=== PATIENT | male | born 1945 | race Caucasian/White ===

== ENCOUNTER 2018-04-21 23:12 | Emergency (ER) | payer MEDICARE ==
[~2018-04-21] VITALS: Ht 175.3 cm; Wt 66.2 kg
[~2018-04-21 23:12] MED LIST: ACET325UDC PO; AMLO10 PO; AMLO5; AMLO5 PO; ARIP10 PO; ATOR40TA; BENAML10/5 PO; BUPR75 PO; CHLGLU.12S MT; CLON.5 PO; CLON1 PO; COLC.6 PO; CYCL10 PO; DEXT40GEL PO; DIPH12.5EL PO; DOC100SO PO; DOC250 PO; DOCU100 PO; ERYSTE250 PO; ERYT250 PO; FURO20 PO; GABA100 PO; GABA250SO PO; GAVILAX17 GM PO; GLUCOSE; HYDACE10B PO; HYDACE5 PO; IBUP800 PO; INSUASPI SC; INSULANI SC; LANS30EC; LANS30EC PO; LAVAP17G PO; LIDO5TP TOP; LISHYD1012 PO; LISI10 PO; LISI5 PO; LISINOPRIL-? DOSE; LORA1 PO; METF500 PO; METH5 PO; METO10 PO; METO25ER PO; MIRT15 PO; OMEP20ER PO; OXYC1L PO; PANT40 PO; POTA20LUD PO; POTCHL10ER PO; QUET25 PO; RANI150EL PO; RXHYDACE PO; SENN8.8S8 PO; SERT50 PO; URSO300 PO; ZOLP10 PO
[2018-04-21 23:55] LABS: BASOPHILS ABSOLUTE AUTO 0.03 K/mm3 (0.00-0.23); BASOPHILS PERCENT AUTO 0 % (0-2); EOSINOPHILS ABSOLUTE AUTO 0.12 K/mm3 (0.00-0.68); EOSINOPHILS PERCENT AUTO 2 % (0-6); Hematocrit 32.1 % (37.0-53.0); Hemoglobin 10.8 g/dL (13.5-17.5); IMMATURE GRAN ABSOLUTE AUTO 0.03 K/mm3 (0.00-0.10); IMMATURE GRAN PERCENT AUTO 0 % (0-1); LYMPHOCYTES PERCENT AUTO 22 % (21-46); MONOCYTES ABSOLUTE AUTO 0.64 K/mm3 (0.16-1.47); MONOCYTES PERCENT AUTO 9 % (4-13); Mean Corpuscular HGB 32.8 pg (26.0-34.0); Mean Corpuscular HGB Conc 33.6 g/dL (31.5-36.5); Mean Corpuscular Volume 98 fL (80-100); Mean Platelet Volume 9.9 fL (9.1-12.4); NEUTROPHILS ABSOLUTE AUTO 4.75 K/mm3 (1.96-9.15); NEUTROPHILS PERCENT AUTO 66 % (41-73); Platelet Count 251 K/mm3 (150-400); RDW Coefficient Variation 13.3 % (11.7-14.2); RDW Standard Deviation 48.1 fL (35.1-46.3); Red Blood Cell Count 3.29 M/mm3 (4.30-5.90); White Blood Cell Count 7.17 K/mm3 (4.00-11.30)
[2018-04-22 00:11] LABS: Alanine Aminotransfer (ALT/SGP 23 U/L (12-78); Albumin, Blood 3.3 g/dL (3.4-5.0); Albumin/Globulin Ratio 1.3 (0.8-1.8); Alk Phos 127 U/L (50-136); Anion Gap 7 mmol/L (6-16); Aspartate Aminotrans (AST/SGOT 23 U/L (12-37); Bilirubin, Total 0.2 mg/dL (0.1-1.0); Blood Urea Nitrogen 13 mg/dL (8-24); Bun/Creatinine Ratio 17.6 (12.0-20.0); CO2, Blood 26 mmol/L (21-32); Calcium, Blood 7.4 mg/dL (8.5-10.1); Chloride, Blood 107 mmol/L (98-108); Creatinine, Blood 0.74 mg/dL (0.60-1.20); Globulin, Blood 2.5 g/dL (2.2-4.0); Glomerular Filtration Rate >60 (60-); Glucose, Blood 79 mg/dL (70-99); Potassium, Blood 3.7 mmol/L (3.5-5.5); Sodium, Blood 140 mmol/L (136-145); Total Protein, Blood 5.8 g/dL (6.4-8.2); Troponin I <0.015 ng/mL (0.000-0.040)
== END 2018-04-22 02:12 | disposition home or self-care (01) ==
LOC: ER 23:12
PROVIDERS: Emergency Medicine
DX: R55 Syncope and collapse (principal); S00.01XA Abrasion of scalp, initial encounter; R07.89 Other chest pain; E11.9 Type 2 diabetes mellitus without complications; Z88.8 Allergy status to other drugs, medicaments and biological substances; Z88.1 Allergy status to other antibiotic agents; Z88.0 Allergy status to penicillin; Z79.899 Other long term (current) drug therapy; Z79.84 Long term (current) use of oral hypoglycemic drugs; Z87.891 Personal history of nicotine dependence; W18.30XA Fall on same level, unspecified, initial encounter
CPT/HCPCS: 36415; 70450; 71046; 72125; 73070; 80053; 84484; 85025; 93005; 93010; 96361; 96374; 96375; 99285-25; J2405; J3010; J7030

== ENCOUNTER 2019-01-30 00:52 | Emergency (ER) | payer OTHER, MEDICARE ==
[~2019-01-30] VITALS: Ht 175.3 cm; Wt 67.1 kg
[2019-01-30 01:18] LABS: BASOPHILS ABSOLUTE AUTO 0.04 K/mm3 (0.00-0.23); BASOPHILS PERCENT AUTO 1 % (0-2); EOSINOPHILS ABSOLUTE AUTO 0.14 K/mm3 (0.00-0.68); EOSINOPHILS PERCENT AUTO 2 % (0-6); Hematocrit 33.5 % (37.0-53.0); Hemoglobin 11.8 g/dL (13.5-17.5); IMMATURE GRAN ABSOLUTE AUTO 0.02 K/mm3 (0.00-0.10); IMMATURE GRAN PERCENT AUTO 0 % (0-1); LYMPHOCYTES ABSOLUTE AUTO 1.96 K/mm3 (0.84-5.20); LYMPHOCYTES PERCENT AUTO 29 % (21-46); MONOCYTES ABSOLUTE AUTO 0.77 K/mm3 (0.16-1.47); MONOCYTES PERCENT AUTO 12 % (4-13); Mean Corpuscular HGB 34.1 pg (26.0-34.0); Mean Corpuscular HGB Conc 35.2 g/dL (31.5-36.5); Mean Corpuscular Volume 97 fL (80-100); Mean Platelet Volume 9.4 fL (9.1-12.4); NEUTROPHILS ABSOLUTE AUTO 3.79 K/mm3 (1.96-9.15); NEUTROPHILS PERCENT AUTO 56 % (41-73); Platelet Count 378 K/mm3 (150-400); RDW Coefficient Variation 13.2 % (11.7-14.2); RDW Standard Deviation 47.3 fL (35.1-46.3); Red Blood Cell Count 3.46 M/mm3 (4.30-5.90); White Blood Cell Count 6.72 K/mm3 (4.00-11.30)
[2019-01-30 01:34] LABS: Prothrombin Time Results 10.6 Sec (9.7-11.5)
[2019-01-30 01:35] LABS: Alanine Aminotransfer (ALT/SGP 22 U/L (12-78); Albumin, Blood 3.9 g/dL (3.4-5.0); Albumin/Globulin Ratio 1.6 (0.8-1.8); Alk Phos 171 U/L (50-136); Anion Gap 7 mmol/L (6-16); Aspartate Aminotrans (AST/SGOT 24 U/L (12-37); Bilirubin, Total 0.2 mg/dL (0.1-1.0); Blood Urea Nitrogen 21 mg/dL (8-24); Bun/Creatinine Ratio 23.5 (12.0-20.0); CO2, Blood 28 mmol/L (21-32); Calcium, Blood 8.4 mg/dL (8.5-10.1); Chloride, Blood 94 mmol/L (98-108); Creatinine, Blood 0.89 mg/dL (0.60-1.20); Globulin, Blood 2.5 g/dL (2.2-4.0); Glomerular Filtration Rate >60 (60-); Glucose, Blood 111 mg/dL (70-99); Potassium, Blood 4.1 mmol/L (3.5-5.5); Sodium, Blood 129 mmol/L (136-145); Total Protein, Blood 6.4 g/dL (6.4-8.2)
== END 2019-01-30 03:40 | disposition home or self-care (01) ==
LOC: ER 00:52
PROVIDERS: Emergency Medicine
DX: S09.90XA Unspecified injury of head, initial encounter (principal); S80.01XA Contusion of right knee, initial encounter; S90.01XA Contusion of right ankle, initial encounter; E11.9 Type 2 diabetes mellitus without complications; I10 Essential (primary) hypertension; Z88.8 Allergy status to other drugs, medicaments and biological substances; Z88.0 Allergy status to penicillin; Z79.899 Other long term (current) drug therapy; Z79.84 Long term (current) use of oral hypoglycemic drugs; Z87.891 Personal history of nicotine dependence; V89.2XXA Person injured in unspecified motor-vehicle accident, traffic, initial encounter
CPT/HCPCS: 36415; 70450; 71046; 73562-LT; 73610; 80053; 85025; 85610; 99284-25

== ENCOUNTER → 2020-04-26 | Outpatient (CLI) | payer OTHER, MEDICARE ==
[~2020-04-26] MED LIST changes: +Anti-Diarrheal2 MG PO; +CELE100 PO; +CHLO25B PO; +FERSU300 PO; +FISH OIL 1,0001 EAC1 PO; +Hydroxyzine HCl50 MG PO; +MELA3 PO; +MULTIPLE VITAM1 EACH PO; +Norco 10-325 T1 EACH PO; +OMEPPI 20 MG-11 EACH PO; +PERIDEX15 ML; +Robaxin750 MG PO; +Ropinirole HCl1 MG PO; +SPIR25 PO; +TAMS.4ER PO; +Vitamin D400 UNI1 PO
[2020-04-26 10:18] LABS: U Amphetamine Screen Not Detected
[2020-04-26 10:19] LABS: U Barbituate Screen Not Detected; U Benzodiazapine Screen Not Detected; U Buprenorphine Screen Not Detected; U Cannabinoids Screen Not Detected; U Cocaine Screen Not Detected; U Methadone Screen Not Detected; U Methamphetamine Screen Not Detected; U Opiates Screen Not Detected; U Oxycodone Screen DETECTED; U Phencyclidine Screen Not Detected; U Propoxyphene Screen Not Detected
[2020-05-03 09:09] LABS: TRICYCLIC ANTIDEP Negative ng/mL (Cutoff=100)
== END | disposition home or self-care (01) ==
LOC: OLS 09:19 → LAB SHORT 09:19
PROVIDERS: Physician Assistant Medical
DX: Z51.81 Encounter for therapeutic drug level monitoring (principal); Z79.891 Long term (current) use of opiate analgesic
CPT/HCPCS: G0480; G0481

== ENCOUNTER 2020-06-18 01:27 | Emergency (ER) | payer OTHER, MEDICARE ==
[~2020-06-18] VITALS: Ht 170.2 cm; Wt 67.1 kg
[2020-06-18 01:56] LABS: BASOPHILS ABSOLUTE AUTO 0.03 K/mm3 (0.00-0.23); BASOPHILS PERCENT AUTO 0 % (0-2); EOSINOPHILS ABSOLUTE AUTO 0.15 K/mm3 (0.00-0.68); EOSINOPHILS PERCENT AUTO 2 % (0-6); Hematocrit 28.4 % (37.0-53.0); Hemoglobin 9.9 g/dL (13.5-17.5); IMMATURE GRAN ABSOLUTE AUTO 0.04 K/mm3 (0.00-0.10); IMMATURE GRAN PERCENT AUTO 1 % (0-1); LYMPHOCYTES ABSOLUTE AUTO 1.36 K/mm3 (0.84-5.20); LYMPHOCYTES PERCENT AUTO 19 % (21-46); MONOCYTES ABSOLUTE AUTO 0.71 K/mm3 (0.16-1.47); MONOCYTES PERCENT AUTO 10 % (4-13); Mean Corpuscular HGB 31.8 pg (26.0-34.0); Mean Corpuscular HGB Conc 34.9 g/dL (31.5-36.5); Mean Corpuscular Volume 91 fL (80-100); Mean Platelet Volume 9.1 fL (9.1-12.4); NEUTROPHILS ABSOLUTE AUTO 4.71 K/mm3 (1.96-9.15); NEUTROPHILS PERCENT AUTO 67 % (41-73); Platelet Count 273 K/mm3 (150-400); RDW Coefficient Variation 12.5 % (11.7-14.2); RDW Standard Deviation 41.6 fL (35.1-46.3); Red Blood Cell Count 3.11 M/mm3 (4.30-5.90)
[2020-06-18 02:15] LABS: Alanine Aminotransfer (ALT/SGP 22 U/L (12-78); Albumin, Blood 3.6 g/dL (3.4-5.0); Albumin/Globulin Ratio 1.6 (0.8-1.8); Alk Phos 112 U/L (50-136); Anion Gap 7 mmol/L (6-16); Aspartate Aminotrans (AST/SGOT 23 U/L (12-37); Bilirubin, Total 0.2 mg/dL (0.1-1.0); Blood Urea Nitrogen 19 mg/dL (8-24); Bun/Creatinine Ratio 22.8 (12.0-20.0); CO2, Blood 28 mmol/L (21-32); Calcium, Blood 8.4 mg/dL (8.5-10.1); Chloride, Blood 93 mmol/L (98-108); Creatinine, Blood 0.83 mg/dL (0.60-1.20); Globulin, Blood 2.3 g/dL (2.2-4.0); Glomerular Filtration Rate >60 (60-); Glucose, Blood 106 mg/dL (70-99); Potassium, Blood 3.4 mmol/L (3.5-5.5); Sodium, Blood 128 mmol/L (136-145); Total Protein, Blood 5.9 g/dL (6.4-8.2); Troponin I <0.015 ng/mL (0.000-0.040)
[2020-06-18 02:47] LABS: Source, Urine Clean Catch
[2020-06-18 02:50] LABS: Bilirubin, Urine Neg (Neg); Blood, Urine Neg (Neg); Glucose Qualitative, Urine 1+ (Neg); Ketones, Urine Neg (Neg); Leukocyte Esterase, Urine Neg (Neg); Nitrite, Urine Neg (Neg); Protein, Urine Neg (Neg); Urobilinogen, Urine NORM (Normal)
[2020-06-18 03:00] LABS: Appearance, Urine Clear (Clear); Color, Urine Yellow (P-Yellow)
== END 2020-06-18 04:37 | disposition home or self-care (01) ==
LOC: ER 01:27
PROVIDERS: Emergency Medicine
DX: E87.1 Hypo-osmolality and hyponatremia (principal); E11.9 Type 2 diabetes mellitus without complications; Z79.899 Other long term (current) drug therapy; Z88.8 Allergy status to other drugs, medicaments and biological substances; Z88.0 Allergy status to penicillin; Z87.891 Personal history of nicotine dependence
CPT/HCPCS: 80053; 81003; 84484; 85025; 93005; 93010; 96360; 99285-25; J7030

== ENCOUNTER 2020-12-12 00:53 | Emergency (ER) | payer OTHER, MEDICARE ==
[~2020-12-12] VITALS: Ht 182.9 cm; Wt 68.0 kg
[2020-12-12 02:09] LABS: BASOPHILS ABSOLUTE AUTO 0.05 K/mm3 (0.00-0.23); BASOPHILS PERCENT AUTO 1 % (0-2); EOSINOPHILS ABSOLUTE AUTO 0.18 K/mm3 (0.00-0.68); EOSINOPHILS PERCENT AUTO 4 % (0-6); Hematocrit 30.3 % (37.0-53.0); Hemoglobin 10.4 g/dL (13.5-17.5); IMMATURE GRAN ABSOLUTE AUTO 0.01 K/mm3 (0.00-0.10); IMMATURE GRAN PERCENT AUTO 0 % (0-1); LYMPHOCYTES ABSOLUTE AUTO 1.44 K/mm3 (0.84-5.20); LYMPHOCYTES PERCENT AUTO 28 % (21-46); MONOCYTES PERCENT AUTO 10 % (4-13); Mean Corpuscular HGB 33.3 pg (26.0-34.0); Mean Corpuscular HGB Conc 34.3 g/dL (31.5-36.5); Mean Corpuscular Volume 97 fL (80-100); Mean Platelet Volume 9.2 fL (9.1-12.4); NEUTROPHILS ABSOLUTE AUTO 2.94 K/mm3 (1.96-9.15); NEUTROPHILS PERCENT AUTO 57 % (41-73); Platelet Count 374 K/mm3 (150-400); RDW Coefficient Variation 12.8 % (11.7-14.2); RDW Standard Deviation 45.9 fL (35.1-46.3); Red Blood Cell Count 3.12 M/mm3 (4.30-5.90); White Blood Cell Count 5.12 K/mm3 (4.00-11.30)
[2020-12-12 02:21] LABS: Ethanol (Alcohol), Blood, Med <3 mg/dL
[2020-12-12 02:22] LABS: Alanine Aminotransfer (ALT/SGP 19 U/L (12-78); Albumin, Blood 3.6 g/dL (3.4-5.0); Albumin/Globulin Ratio 1.6 (0.8-1.8); Alk Phos 129 U/L (50-136); Anion Gap 5 mmol/L (6-16); Aspartate Aminotrans (AST/SGOT 18 U/L (12-37); Bilirubin, Total 0.2 mg/dL (0.1-1.0); Blood Urea Nitrogen 14 mg/dL (8-24); Bun/Creatinine Ratio 14.1 (12.0-20.0); CO2, Blood 29 mmol/L (21-32); Chloride, Blood 99 mmol/L (98-108); Creatinine, Blood 0.99 mg/dL (0.60-1.20); Globulin, Blood 2.3 g/dL (2.2-4.0); Glomerular Filtration Rate >60 (60-); Glucose, Blood 121 mg/dL (70-99); Potassium, Blood 3.1 mmol/L (3.5-5.5); Sodium, Blood 133 mmol/L (136-145); Total Protein, Blood 5.9 g/dL (6.4-8.2)
[2020-12-12 03:57] LABS: Source, Urine Clean Catch
[2020-12-12 04:00] LABS: Bilirubin, Urine Neg (Neg); Blood, Urine Neg (Neg); Glucose Qualitative, Urine Neg (Neg); Ketones, Urine Neg (Neg); Leukocyte Esterase, Urine Neg (Neg); Nitrite, Urine Neg (Neg); Protein, Urine Neg (Neg); Specific Gravity, Urine 1.005 (1.003-1.022); Urobilinogen, Urine NORM (Normal)
[2020-12-12 04:06] LABS: Appearance, Urine Clear (Clear); Color, Urine Yellow (P-Yellow)
[2020-12-12 04:11] LABS: U Amphetamine Screen Not Detected; U Barbituate Screen Not Detected; U Methamphetamine Screen Not Detected
[2020-12-12 04:12] LABS: U Benzodiazapine Screen Not Detected; U Buprenorphine Screen Not Detected; U Cannabinoids Screen Not Detected; U Cocaine Screen Not Detected; U Methadone Screen Not Detected; U Opiates Screen Not Detected; U Oxycodone Screen Not Detected; U Phencyclidine Screen Not Detected; U Propoxyphene Screen Not Detected
[2020-12-12 04:16] LABS: CPK Creatine Kinase 97 U/L (39-308)
== END 2020-12-12 07:41 | disposition home or self-care (01) ==
LOC: ER 00:53
PROVIDERS: Emergency Medicine
DX: M62.838 Other muscle spasm (principal); E11.9 Type 2 diabetes mellitus without complications; I10 Essential (primary) hypertension; Z88.0 Allergy status to penicillin; Z88.8 Allergy status to other drugs, medicaments and biological substances; Z79.899 Other long term (current) drug therapy; Z87.891 Personal history of nicotine dependence; W18.30XA Fall on same level, unspecified, initial encounter
CPT/HCPCS: 36415; 70450; 71045; 72125; 80053; 81003; 82550; 82947; 85025; 93005; 93010; 96374; 99285-25; A9270; G0480; J1885

== ENCOUNTER 2021-04-22 01:06 | Emergency (ER) | payer OTHER ==
[~2021-04-22] VITALS: Ht 170.2 cm; Wt 70.8 kg
[~2021-04-22 01:06] MED LIST changes: +BENZ100A PO; +CLOTRIMAZOLE AF1524 TOP; +EPLE25 PO; +HYDROCORTISON28.4 G4 TOP; +IMIQUIMOD1 EACH TOP; +NALOXONE H0.4 MG/1 M IM; +TERA5 PO
[2021-04-22 01:40] LABS: BASOPHILS ABSOLUTE AUTO 0.05 K/mm3 (0.00-0.23); BASOPHILS PERCENT AUTO 1 % (0-2); EOSINOPHILS ABSOLUTE AUTO 0.18 K/mm3 (0.00-0.68); EOSINOPHILS PERCENT AUTO 2 % (0-6); Hematocrit 32.5 % (37.0-53.0); Hemoglobin 11.4 g/dL (13.5-17.5); IMMATURE GRAN ABSOLUTE AUTO 0.05 K/mm3 (0.00-0.10); IMMATURE GRAN PERCENT AUTO 1 % (0-1); LYMPHOCYTES ABSOLUTE AUTO 1.36 K/mm3 (0.84-5.20); LYMPHOCYTES PERCENT AUTO 15 % (21-46); MONOCYTES ABSOLUTE AUTO 0.79 K/mm3 (0.16-1.47); MONOCYTES PERCENT AUTO 9 % (4-13); Mean Corpuscular HGB 33.1 pg (26.0-34.0); Mean Corpuscular HGB Conc 35.1 g/dL (31.5-36.5); Mean Corpuscular Volume 95 fL (80-100); Mean Platelet Volume 9.7 fL (9.1-12.4); NEUTROPHILS ABSOLUTE AUTO 6.47 K/mm3 (1.96-9.15); NEUTROPHILS PERCENT AUTO 73 % (41-73); Platelet Count 370 K/mm3 (150-400); RDW Coefficient Variation 13.4 % (11.7-14.2); RDW Standard Deviation 47.3 fL (35.1-46.3); Red Blood Cell Count 3.44 M/mm3 (4.30-5.90)
[2021-04-22 02:00] LABS: Alanine Aminotransfer (ALT/SGP 31 U/L (12-78); Albumin, Blood 3.6 g/dL (3.4-5.0); Albumin/Globulin Ratio 1.3 (0.8-1.8); Alk Phos 118 U/L (50-136); Anion Gap 6 mmol/L (6-16); Aspartate Aminotrans (AST/SGOT 40 U/L (12-37); Bilirubin, Total 0.3 mg/dL (0.1-1.0); Blood Urea Nitrogen 16 mg/dL (8-24); Bun/Creatinine Ratio 17.8 (12.0-20.0); CO2, Blood 25 mmol/L (21-32); Calcium, Blood 8.2 mg/dL (8.5-10.1); Chloride, Blood 100 mmol/L (98-108); Globulin, Blood 2.7 g/dL (2.2-4.0); Glomerular Filtration Rate >60 (60-); Glucose, Blood 108 mg/dL (70-99); Potassium, Blood 4.3 mmol/L (3.5-5.5); Sodium, Blood 131 mmol/L (136-145); Total Protein, Blood 6.3 g/dL (6.4-8.2)
[2021-04-22 02:01] LABS: Troponin I <0.015 ng/mL (0.000-0.040)
== END 2021-04-22 02:47 | disposition home or self-care (01) ==
LOC: ER 01:06
PROVIDERS: Emergency Medicine
DX: R55 Syncope and collapse (principal); E11.9 Type 2 diabetes mellitus without complications; Z88.8 Allergy status to other drugs, medicaments and biological substances; Z88.0 Allergy status to penicillin; Z79.899 Other long term (current) drug therapy
CPT/HCPCS: 71045; 80053; 83880; 84484; 85025; 93005; 93010; 99284-25

== ENCOUNTER 2021-04-22 07:48 | Day surgery (SDC) | payer OTHER, MEDICARE ==
[~2021-04-22] VITALS: Ht 175.3 cm; Wt 73.0 kg
== END 2021-04-22 14:00 | disposition home or self-care (01) ==
LOC: MHTC 07:48
PROC: 04FC3ZZ Fragmentation of Right Common Iliac Artery, Percutaneous Approach (ICD-10-PCS; principal; 2021-04-22)
PROC: 04FD3ZZ Fragmentation of Left Common Iliac Artery, Percutaneous Approach (ICD-10-PCS; principal; 2021-04-22)
PROC: 047D3DZ Dilation of Left Common Iliac Artery with Intraluminal Device, Percutaneous Approach (ICD-10-PCS; principal; 2021-04-22)
PROC: 047C3DZ Dilation of Right Common Iliac Artery with Intraluminal Device, Percutaneous Approach (ICD-10-PCS; principal; 2021-04-22)
DX: I72.3 Aneurysm of iliac artery (principal); K21.9 Gastro-esophageal reflux disease without esophagitis; E78.5 Hyperlipidemia, unspecified; I10 Essential (primary) hypertension; R73.03 Prediabetes; Z87.891 Personal history of nicotine dependence; Z88.8 Allergy status to other drugs, medicaments and biological substances; Z88.0 Allergy status to penicillin
CPT/HCPCS: 75625; 75716; 76937; 99152; 99153; C1725; C1760; C1769; C1874; C1876; C1887; C1894; C9765; J1644; J2250; J3010; J7030; J7050; Q9967

== ENCOUNTER 2021-07-24 02:36 | Emergency (ER) | payer OTHER ==
[~2021-07-24] VITALS: Ht 177.8 cm; Wt 79.4 kg
[2021-07-24 03:06] LABS: BASOPHILS ABSOLUTE AUTO 0.05 K/mm3 (0.00-0.23); BASOPHILS PERCENT AUTO 1 % (0-2); EOSINOPHILS ABSOLUTE AUTO 0.13 K/mm3 (0.00-0.68); EOSINOPHILS PERCENT AUTO 2 % (0-6); Hematocrit 34.8 % (37.0-53.0); Hemoglobin 12.2 g/dL (13.5-17.5); IMMATURE GRAN ABSOLUTE AUTO 0.03 K/mm3 (0.00-0.10); IMMATURE GRAN PERCENT AUTO 0 % (0-1); LYMPHOCYTES ABSOLUTE AUTO 0.93 K/mm3 (0.84-5.20); LYMPHOCYTES PERCENT AUTO 11 % (21-46); MONOCYTES ABSOLUTE AUTO 0.65 K/mm3 (0.16-1.47); MONOCYTES PERCENT AUTO 8 % (4-13); Mean Corpuscular HGB 33.1 pg (26.0-34.0); Mean Corpuscular HGB Conc 35.1 g/dL (31.5-36.5); Mean Corpuscular Volume 94 fL (80-100); Mean Platelet Volume 9.1 fL (9.1-12.4); NEUTROPHILS ABSOLUTE AUTO 6.59 K/mm3 (1.96-9.15); NEUTROPHILS PERCENT AUTO 79 % (41-73); Platelet Count 347 K/mm3 (150-400); RDW Coefficient Variation 13.2 % (11.7-14.2); RDW Standard Deviation 46.2 fL (35.1-46.3); Red Blood Cell Count 3.69 M/mm3 (4.30-5.90); White Blood Cell Count 8.38 K/mm3 (4.00-11.30)
[2021-07-24 03:39] LABS: Alanine Aminotransfer (ALT/SGP 28 U/L (12-78); Albumin, Blood 3.8 g/dL (3.4-5.0); Albumin/Globulin Ratio 1.2 (0.8-1.8); Alk Phos 135 U/L (50-136); Anion Gap 7 mmol/L (6-16); Aspartate Aminotrans (AST/SGOT 21 U/L (12-37); Beta HCG, Quantitative, Serum <1 mIU/mL (0-1); Bilirubin, Total 0.2 mg/dL (0.1-1.0); Blood Urea Nitrogen 16 mg/dL (8-24); Bun/Creatinine Ratio 17.3 (12.0-20.0); CO2, Blood 25 mmol/L (21-32); Calcium, Blood 8.4 mg/dL (8.5-10.1); Chloride, Blood 103 mmol/L (98-108); Creatinine, Blood 0.93 mg/dL (0.60-1.20); Ethanol (Alcohol), Blood, Med <3 mg/dL; Globulin, Blood 3.1 g/dL (2.2-4.0); Glomerular Filtration Rate >60 (60-); Glucose, Blood 86 mg/dL (70-99); Potassium, Blood 3.9 mmol/L (3.5-5.5); Sodium, Blood 135 mmol/L (136-145); Total Protein, Blood 6.9 g/dL (6.4-8.2)
[2021-07-24 06:33] LABS: International Normalized Ratio 1.05
[2021-07-24 06:41] LABS: Troponin I <0.015 ng/mL (0.000-0.040)
== END 2021-07-24 08:30 | disposition home or self-care (01) ==
LOC: ER 02:36
PROVIDERS: Student in an Organized Health Care Education/Training Program
DX: R55 Syncope and collapse (principal); S16.1XXA Strain of muscle, fascia and tendon at neck level, initial encounter; S00.03XA Contusion of scalp, initial encounter; I10 Essential (primary) hypertension; E11.9 Type 2 diabetes mellitus without complications; Z87.891 Personal history of nicotine dependence; Z88.0 Allergy status to penicillin; Z88.8 Allergy status to other drugs, medicaments and biological substances; Z79.899 Other long term (current) drug therapy; W22.8XXA Striking against or struck by other objects, initial encounter
CPT/HCPCS: 36415; 70450; 71045; 72125; 80053; 82947; 83690; 83880; 84484; 84702; 85025; 85610; 93005; 93010; 96374; 99285-25; A9270; G0480; J1885; J7042

== ENCOUNTER 2022-03-01 04:05 | Emergency (ER) | payer OTHER ==
[~2022-03-01] VITALS: Ht 170.2 cm; Wt 71.2 kg
[2022-03-01 04:25] LABS: BASOPHILS ABSOLUTE AUTO 0.05 K/mm3 (0.00-0.23); BASOPHILS PERCENT AUTO 1 % (0-2); EOSINOPHILS ABSOLUTE AUTO 0.32 K/mm3 (0.00-0.68); EOSINOPHILS PERCENT AUTO 4 % (0-6); Hematocrit 32.3 % (37.0-53.0); IMMATURE GRAN ABSOLUTE AUTO 0.03 K/mm3 (0.00-0.10); IMMATURE GRAN PERCENT AUTO 0 % (0-1); LYMPHOCYTES ABSOLUTE AUTO 1.62 K/mm3 (0.84-5.20); LYMPHOCYTES PERCENT AUTO 20 % (21-46); MONOCYTES ABSOLUTE AUTO 0.58 K/mm3 (0.16-1.47); MONOCYTES PERCENT AUTO 7 % (4-13); Mean Corpuscular HGB Conc 34.1 g/dL (31.5-36.5); Mean Corpuscular Volume 94 fL (80-100); NEUTROPHILS ABSOLUTE AUTO 5.54 K/mm3 (1.96-9.15); NEUTROPHILS PERCENT AUTO 68 % (41-73); Platelet Count 255 K/mm3 (150-400); RDW Coefficient Variation 13.8 % (11.7-14.2); RDW Standard Deviation 47.8 fL (35.1-46.3); Red Blood Cell Count 3.44 M/mm3 (4.30-5.90); White Blood Cell Count 8.14 K/mm3 (4.00-11.30)
[2022-03-01 04:48] LABS: Albumin, Blood 3.6 g/dL (3.4-5.0); Albumin/Globulin Ratio 1.5 (0.8-1.8); Bilirubin, Total 0.2 mg/dL (0.1-1.0); Bun/Creatinine Ratio 12.5 (12.0-20.0); Calcium, Blood 7.9 mg/dL (8.5-10.1); Creatinine, Blood 0.8 mg/dL (0.60-1.20); Globulin, Blood 2.4 g/dL (2.2-4.0); Potassium, Blood 3.4 mmol/L (3.5-5.5)
== END 2022-03-01 08:15 | disposition home or self-care (01) ==
LOC: ER 04:05
PROVIDERS: Student in an Organized Health Care Education/Training Program
DX: S00.03XA Contusion of scalp, initial encounter (principal); M54.2 Cervicalgia; W18.30XA Fall on same level, unspecified, initial encounter; E11.9 Type 2 diabetes mellitus without complications; I10 Essential (primary) hypertension; Z88.0 Allergy status to penicillin; Z88.8 Allergy status to other drugs, medicaments and biological substances; Z79.899 Other long term (current) drug therapy; Z87.891 Personal history of nicotine dependence
CPT/HCPCS: 36415; 70450; 72125; 80053; 84484; 85025; 93005; 93010

== ENCOUNTER 2022-04-21 09:18 | Emergency (ER) | payer OTHER ==
[~2022-04-21] VITALS: Ht 170.2 cm; Wt 69.0 kg
[2022-04-21 09:34] LABS: BASOPHILS ABSOLUTE AUTO 0.04 K/mm3 (0.00-0.23); BASOPHILS PERCENT AUTO 1 % (0-2); EOSINOPHILS ABSOLUTE AUTO 0.25 K/mm3 (0.00-0.68); EOSINOPHILS PERCENT AUTO 3 % (0-6); Hematocrit 32.5 % (37.0-53.0); Hemoglobin 11.2 g/dL (13.5-17.5); IMMATURE GRAN ABSOLUTE AUTO 0.03 K/mm3 (0.00-0.10); IMMATURE GRAN PERCENT AUTO 0 % (0-1); LYMPHOCYTES ABSOLUTE AUTO 1.31 K/mm3 (0.84-5.20); LYMPHOCYTES PERCENT AUTO 16 % (21-46); MONOCYTES PERCENT AUTO 10 % (4-13); Mean Corpuscular HGB 31.9 pg (26.0-34.0); Mean Corpuscular HGB Conc 34.5 g/dL (31.5-36.5); Mean Corpuscular Volume 93 fL (80-100); Mean Platelet Volume 9.4 fL (9.1-12.4); NEUTROPHILS ABSOLUTE AUTO 5.98 K/mm3 (1.96-9.15); NEUTROPHILS PERCENT AUTO 71 % (41-73); Platelet Count 341 K/mm3 (150-400); RDW Coefficient Variation 13.9 % (11.7-14.2); RDW Standard Deviation 47.6 fL (35.1-46.3); Red Blood Cell Count 3.51 M/mm3 (4.30-5.90); White Blood Cell Count 8.41 K/mm3 (4.00-11.30)
[2022-04-21 09:52] LABS: Albumin, Blood 3.7 g/dL (3.4-5.0); Albumin/Globulin Ratio 1.2 (0.8-1.8); Bilirubin, Total 0.3 mg/dL (0.1-1.0); Bun/Creatinine Ratio 20.2 (12.0-20.0); Calcium, Blood 8.4 mg/dL (8.5-10.1); Creatinine, Blood 0.94 mg/dL (0.60-1.20); Globulin, Blood 3.1 g/dL (2.2-4.0); Potassium, Blood 3.9 mmol/L (3.5-5.5); Total Protein, Blood 6.8 g/dL (6.4-8.2)
[2022-04-21] MEDS ORDERED: HYDMOR4 (13:23)
== END 2022-04-21 13:15 | disposition home or self-care (01) ==
LOC: ER 09:18
PROVIDERS: Emergency Medicine
DX: R55 Syncope and collapse (principal); K94.23 Gastrostomy malfunction; I10 Essential (primary) hypertension; E11.9 Type 2 diabetes mellitus without complications; Y84.8 Other medical procedures as the cause of abnormal reaction of the patient, or of later complication, without mention of misadventure at the time of the procedure; Z88.0 Allergy status to penicillin; Z88.8 Allergy status to other drugs, medicaments and biological substances
CPT/HCPCS: 71045; 74018; 80053; 82947; 85025; 93005; 93010

== ENCOUNTER 2022-05-09 10:27 | Emergency (ER) | payer OTHER ==
[~2022-05-09] VITALS: Ht 170.2 cm; Wt 77.8 kg
[~2022-05-09 10:27] MED LIST changes: +HYDMOR4
== END 2022-05-09 12:43 | disposition home or self-care (01) ==
LOC: ER 10:27
DX: Z46.59 Encounter for fitting and adjustment of other gastrointestinal appliance and device (principal); I10 Essential (primary) hypertension; E11.9 Type 2 diabetes mellitus without complications; Z79.899 Other long term (current) drug therapy; Z88.8 Allergy status to other drugs, medicaments and biological substances; Z88.0 Allergy status to penicillin; Z85.01 Personal history of malignant neoplasm of esophagus
CPT/HCPCS: 74018

== ENCOUNTER 2022-08-02 08:45 | Emergency (ER) | payer OTHER ==
[~2022-08-02] VITALS: Ht 167.6 cm; Wt 69.4 kg
[2022-08-02 10:35] LABS: BASOPHILS ABSOLUTE AUTO 0.04 K/mm3 (0.00-0.23); BASOPHILS PERCENT AUTO 0 % (0-2); EOSINOPHILS ABSOLUTE AUTO 0.22 K/mm3 (0.00-0.68); EOSINOPHILS PERCENT AUTO 2 % (0-6); Hematocrit 36.1 % (37.0-53.0); Hemoglobin 12.7 g/dL (13.5-17.5); IMMATURE GRAN ABSOLUTE AUTO 0.07 K/mm3 (0.00-0.10); IMMATURE GRAN PERCENT AUTO 1 % (0-1); LYMPHOCYTES ABSOLUTE AUTO 1.65 K/mm3 (0.84-5.20); LYMPHOCYTES PERCENT AUTO 13 % (21-46); MONOCYTES ABSOLUTE AUTO 1.13 K/mm3 (0.16-1.47); MONOCYTES PERCENT AUTO 9 % (4-13); Mean Corpuscular HGB 32.4 pg (26.0-34.0); Mean Corpuscular HGB Conc 35.2 g/dL (31.5-36.5); Mean Corpuscular Volume 92 fL (80-100); Mean Platelet Volume 8.7 fL (9.1-12.4); NEUTROPHILS ABSOLUTE AUTO 9.59 K/mm3 (1.96-9.15); NEUTROPHILS PERCENT AUTO 76 % (41-73); Platelet Count 411 K/mm3 (150-400); RDW Coefficient Variation 13.4 % (11.7-14.2); RDW Standard Deviation 45.7 fL (35.1-46.3); Red Blood Cell Count 3.92 M/mm3 (4.30-5.90)
[2022-08-02 10:52] LABS: Albumin/Globulin Ratio 1.2 (0.8-1.8); Bilirubin, Total 0.4 mg/dL (0.1-1.0); Bun/Creatinine Ratio 17.5 (12.0-20.0); Calcium, Blood 9.2 mg/dL (8.5-10.1); Creatinine, Blood 0.8 mg/dL (0.60-1.20); Globulin, Blood 3.4 g/dL (2.2-4.0); Potassium, Blood 3.9 mmol/L (3.5-5.5); Total Protein, Blood 7.4 g/dL (6.4-8.2)
[2022-08-02] MEDS ORDERED: Vibramycin100 MG PO ×2 (13:37→13:55)
== END 2022-08-02 14:01 | disposition home or self-care (01) ==
LOC: ER 08:45
PROVIDERS: Physician Assistant
DX: K94.12 Enterostomy infection (principal); L03.311 Cellulitis of abdominal wall; E11.9 Type 2 diabetes mellitus without complications; I10 Essential (primary) hypertension; Y84.8 Other medical procedures as the cause of abnormal reaction of the patient, or of later complication, without mention of misadventure at the time of the procedure; Z88.0 Allergy status to penicillin; Z88.8 Allergy status to other drugs, medicaments and biological substances; Z87.891 Personal history of nicotine dependence
CPT/HCPCS: 36415; 80053; 85025; A9270

== ENCOUNTER 2022-10-07 15:37 | Emergency (ER) | payer OTHER ==
[~2022-10-07] VITALS: Ht 167.6 cm; Wt 72.6 kg
[~2022-10-07 15:37] MED LIST changes: +Vibramycin100 MG PO
== END 2022-10-07 17:11 | disposition home or self-care (01) ==
LOC: ER 15:37
DX: K94.13 Enterostomy malfunction (principal); Z88.8 Allergy status to other drugs, medicaments and biological substances; Z88.0 Allergy status to penicillin; Z79.899 Other long term (current) drug therapy; E11.9 Type 2 diabetes mellitus without complications; I10 Essential (primary) hypertension; Z87.891 Personal history of nicotine dependence
CPT/HCPCS: 49465; 99283-25; Q9963

== ENCOUNTER → 2023-03-26 | Outpatient (CLI) | payer OTHER | END | disposition home or self-care (01) | LOC: LAB SHORT 10:50 → LAB 10:50 | DX: M70.21 Olecranon bursitis, right elbow (principal) | CPT/HCPCS: 87070; 87075; 87205 ==

== ENCOUNTER 2023-07-10 16:36 | Emergency (ER) | payer OTHER ==
[~2023-07-10] VITALS: Ht 167.6 cm; Wt 74.4 kg
[2023-07-10] MEDS ORDERED: METF500 PO (16:52)
[2023-07-10] MEDS ORDERED: LOSA50 PO (16:52)
[2023-07-10] MEDS ORDERED: Robaxin750 MG (16:53)
[2023-07-10] MEDS ORDERED: ROPI1 PO (16:53)
[2023-07-10] MEDS ORDERED: TRAZ50 PO (16:54)
[2023-07-10] MEDS ORDERED: Crestor40 MG PO (16:54)
[2023-07-10] MEDS ORDERED: SERT100 PO (16:54)
[2023-07-10 17:31] LABS: BASOPHILS ABSOLUTE AUTO 0.05 K/mm3 (0.00-0.23); BASOPHILS PERCENT AUTO 1 % (0-2); EOSINOPHILS ABSOLUTE AUTO 0.39 K/mm3 (0.00-0.68); EOSINOPHILS PERCENT AUTO 5 % (0-6); Hematocrit 30.1 % (37.0-53.0); Hemoglobin 10.1 g/dL (13.5-17.5); IMMATURE GRAN ABSOLUTE AUTO 0.02 K/mm3 (0.00-0.10); IMMATURE GRAN PERCENT AUTO 0 % (0-1); LYMPHOCYTES ABSOLUTE AUTO 1.12 K/mm3 (0.84-5.20); LYMPHOCYTES PERCENT AUTO 15 % (21-46); MONOCYTES ABSOLUTE AUTO 1.01 K/mm3 (0.16-1.47); MONOCYTES PERCENT AUTO 13 % (4-13); Mean Corpuscular HGB Conc 33.6 g/dL (31.5-36.5); Mean Corpuscular Volume 95 fL (80-100); Mean Platelet Volume 9.3 fL (9.1-12.4); NEUTROPHILS ABSOLUTE AUTO 5.04 K/mm3 (1.96-9.15); NEUTROPHILS PERCENT AUTO 66 % (41-73); Platelet Count 299 K/mm3 (150-400); RDW Coefficient Variation 13.5 % (11.7-14.2); RDW Standard Deviation 47.7 fL (35.1-46.3); Red Blood Cell Count 3.16 M/mm3 (4.30-5.90); White Blood Cell Count 7.63 K/mm3 (4.00-11.30)
[2023-07-10 17:48] LABS: Albumin, Blood 3.6 g/dL (3.4-5.0); Albumin/Globulin Ratio 1.2 (0.8-1.8); Bilirubin, Total 0.3 mg/dL (0.1-1.0); Bun/Creatinine Ratio 17.7 (12.0-20.0); Calcium, Blood 8.6 mg/dL (8.5-10.1); Creatinine, Blood 0.96 mg/dL (0.60-1.20); Potassium, Blood 3.7 mmol/L (3.5-5.5); Total Protein, Blood 6.6 g/dL (6.4-8.2)
[2023-07-10 17:56] LABS: Source, Urine Clean Catch
[2023-07-10 18:16] LABS: Appearance, Urine Clear (Clear); Bilirubin, Urine Neg (Neg); Blood, Urine Neg (Neg); Color, Urine Yellow (P-Yellow); Glucose Qualitative, Urine Neg (Neg); Ketones, Urine Neg (Neg); Leukocyte Esterase, Urine 1+ (Neg); Nitrite, Urine Neg (Neg); Protein, Urine 1+ (Neg); Urobilinogen, Urine NORM (Normal)
[2023-07-10 18:26] LABS: Bacteria Rare /hpf; Calcium Oxalate Crystals Rare /hpf; Red Blood Cells, Urine 0-2 /hpf (0-2); Squamous Epithelial Cells Not Seen /hpf (Few)
[2023-07-10 19:23] LABS: Influenza A, PCR NEGATIVE (NEGATIVE); Influenza B, PCR NEGATIVE (NEGATIVE); Resp Syncytial Virus, PCR NEGATIVE (NEGATIVE); SARS-Cov-2 (COVID-19) PCR, MMC NEGATIVE (NEGATIVE)
[2023-07-10 20:00] VITALS: BP 156/77
== END 2023-07-10 20:02 | disposition home or self-care (01) ==
LOC: ER 16:36
PROVIDERS: Emergency Medicine
DX: E11.649 Type 2 diabetes mellitus with hypoglycemia without coma (principal); I10 Essential (primary) hypertension; Z20.822 Contact with and (suspected) exposure to COVID-19; Z88.8 Allergy status to other drugs, medicaments and biological substances; Z88.0 Allergy status to penicillin; Z79.84 Long term (current) use of oral hypoglycemic drugs; Z87.891 Personal history of nicotine dependence
CPT/HCPCS: 0241U; 70450; 80053; 81001; 82947; 83735; 84484; 85025; 87086; 93005; 93010; 99284-25

== ENCOUNTER 2023-08-27 02:10 | Day surgery (SDC) | payer OTHER ==
[~2023-08-27 02:10] MED LIST changes: +Crestor40 MG PO; +LOSA50 PO; +ROPI1 PO; +Robaxin750 MG; +SERT100 PO; +TRAZ50 PO
== END 2023-08-27 23:00 | disposition home or self-care (01) ==
LOC: WOUND 02:10
DX: K94.29 Other complications of gastrostomy (principal)
CPT/HCPCS: A9270; G0463

== ENCOUNTER 2023-09-03 04:51 | Day surgery (SDC) | payer OTHER | END 2023-09-03 23:02 | disposition home or self-care (01) | LOC: WOUND 04:51 | DX: K94.29 Other complications of gastrostomy (principal) | CPT/HCPCS: A9270; G0463 ==

== ENCOUNTER 2023-09-10 01:37 | Day surgery (SDC) | payer OTHER | END 2023-09-10 23:20 | disposition home or self-care (01) | LOC: WOUND 01:37 | DX: K94.29 Other complications of gastrostomy (principal) | CPT/HCPCS: A9270; G0463 ==

== ENCOUNTER → 2023-09-10 | Outpatient (CLI) | payer OTHER | LOC: LAB SHORT 08:16 → LAB 08:16 | DX: L57.8 Other skin changes due to chronic exposure to nonionizing radiation (principal) | CPT/HCPCS: 88305 ==

== ENCOUNTER 2023-09-23 00:56 | Observation (INO) | payer OTHER ==
[~2023-09-23] VITALS: Ht 167.6 cm; Wt 72.3 kg
[~2023-09-23 00:56] MED LIST changes: +CEPH500 PO; -Robaxin750 MG
[2023-09-23 01:14] LABS: Hematocrit 26.6 % (37.0-53.0); Mean Corpuscular HGB 31.8 pg (26.0-34.0); Mean Corpuscular HGB Conc 33.8 g/dL (31.5-36.5); Mean Corpuscular Volume 94 fL (80-100); Mean Platelet Volume 9.5 fL (9.1-12.4); Platelet Count 294 K/mm3 (150-400); RDW Coefficient Variation 14.1 % (11.7-14.2); RDW Standard Deviation 48.5 fL (35.1-46.3); Red Blood Cell Count 2.83 M/mm3 (4.30-5.90); White Blood Cell Count 10.17 K/mm3 (4.00-11.30)
[2023-09-23] MEDS ORDERED: Morphine Sulfate 4 MG/1 ML Injection IV ONE (01:15)
[2023-09-23] MEDS ORDERED: Ondansetron HCl 2 MG / ML 2ML Vial IV ONE (01:15)
[2023-09-23 01:40] LABS: Albumin, Blood 3.7 g/dL (3.4-5.0); Albumin/Globulin Ratio 1.3 (0.8-1.8); Bilirubin, Total 0.3 mg/dL (0.1-1.0); Bun/Creatinine Ratio 21.9 (12.0-20.0); Calcium, Blood 8.4 mg/dL (8.5-10.1); Creatinine, Blood 0.78 mg/dL (0.60-1.20); Globulin, Blood 2.8 g/dL (2.2-4.0); Phosphorus, Blood 3.2 mg/dL (2.5-4.9); Potassium, Blood 4.7 mmol/L (3.5-5.5); Thyroid Stimulating Hormone 2.33 uIU/mL (0.360-4.800); Total Protein, Blood 6.5 g/dL (6.4-8.2)
[2023-09-23 01:41] LABS: BASOPHILS PERCENT MAN 0 % (0-2); EOSINOPHILS PERCENT MAN 4 % (0-6); LYMPHOCYTES ABSOLUTE MAN 1.11 K/mm3 (0.84-5.20); LYMPHOCYTES PERCENT MAN 11 % (21-46); MONOCYTES ABSOLUTE MAN 0.61 K/mm3 (0.16-1.47); MONOCYTES PERCENT MAN 6 % (4-13); NEUTROPHILS ABSOLUTE MAN 8.03 K/mm3 (1.96-9.15); SEG NEUTROPHILS PERCENT MAN 79 % (41-73); TOTAL CELLS COUNTED 100
[2023-09-23 01:52] LABS: International Normalized Ratio 1.02; Prothrombin Time Results 10.7 Sec (9.7-11.5)
[2023-09-23] MEDS ORDERED: CefTRIAXone Sodium 1,000 MG in NS 50 ML IV ONE (02:10)
[2023-09-23] MEDS ORDERED: Lidocaine 4% 1 Patch TOP ONE (02:20)
[2023-09-23] MEDS ORDERED: NS 1,000 ML IV SCH ×2 (02:25→03:00)
[2023-09-23] MEDS ORDERED: FLU VACC QS2023-24(6MOS UP)/PF 60 MCG/0.5 ML SYRINGE IM ONE (02:45)
[2023-09-23] MEDS ORDERED: Pantoprazole Sodium 40 MG in NS 50 ML IV SCH (02:50)
[2023-09-23] MEDS ORDERED: Lidocaine/Tetracaine/Epinephr 4 ML SOLN TOP ONE (03:05)
[2023-09-23 04:55] LABS: BASOPHILS ABSOLUTE AUTO 0.02 K/mm3 (0.00-0.23); BASOPHILS PERCENT AUTO 0 % (0-2); EOSINOPHILS ABSOLUTE AUTO 0.15 K/mm3 (0.00-0.68); EOSINOPHILS PERCENT AUTO 1 % (0-6); Hematocrit 23.4 % (37.0-53.0); Hemoglobin 7.9 g/dL (13.5-17.5); IMMATURE GRAN ABSOLUTE AUTO 0.06 K/mm3 (0.00-0.10); IMMATURE GRAN PERCENT AUTO 1 % (0-1); LYMPHOCYTES ABSOLUTE AUTO 1.01 K/mm3 (0.84-5.20); LYMPHOCYTES PERCENT AUTO 9 % (21-46); MONOCYTES ABSOLUTE AUTO 0.65 K/mm3 (0.16-1.47); MONOCYTES PERCENT AUTO 6 % (4-13); Mean Corpuscular HGB 31.3 pg (26.0-34.0); Mean Corpuscular HGB Conc 33.8 g/dL (31.5-36.5); Mean Corpuscular Volume 93 fL (80-100); Mean Platelet Volume 9.4 fL (9.1-12.4); NEUTROPHILS ABSOLUTE AUTO 9.65 K/mm3 (1.96-9.15); NEUTROPHILS PERCENT AUTO 84 % (41-73); Platelet Count 267 K/mm3 (150-400); RDW Coefficient Variation 14.2 % (11.7-14.2); RDW Standard Deviation 48.4 fL (35.1-46.3); Red Blood Cell Count 2.52 M/mm3 (4.30-5.90); White Blood Cell Count 11.54 K/mm3 (4.00-11.30)
[2023-09-23] MEDS ORDERED: rOPINIRole HCl 2 MG Tab PO ONE (05:25)
[2023-09-23 05:26] LABS: Albumin, Blood 3.5 g/dL (3.4-5.0); Albumin/Globulin Ratio 1.5 (0.8-1.8); Bilirubin, Total 0.2 mg/dL (0.1-1.0); Bun/Creatinine Ratio 26.7 (12.0-20.0); Calcium, Blood 7.8 mg/dL (8.5-10.1); Creatinine, Blood 0.75 mg/dL (0.60-1.20); Globulin, Blood 2.4 g/dL (2.2-4.0); Potassium, Blood 4.9 mmol/L (3.5-5.5); Total Protein, Blood 5.9 g/dL (6.4-8.2)
--- NOTE | 2023-09-23 06:31 | NUR ---
SHIFT SUMMARY PT ARRIVED TO UNIT WITH A 1L NS BOLUS FINISHING TO GRAVITY. PT HAS [address]. PT HAS PEG TUBE WITH NOTABLE REDNESS AND SORENESS AROUND SITE. PT C/O PAIN AT THE PEG TUBE SITE, STATES THAT "NOTHING HAS WORKED FOR IT BEFORE." PT DID RECEIVE NUMBING AGENT FROM ED THAT PT STATED HELPED WITH PAIN MANAGEMENT. PT ABLE TO AMBULATE FROM STRETCHER TO BED AFTER DANGLING. 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 PT ALSO C/O RESTLESS LEG SYNDROME AND REQUESTS REQUIP. CALL PLACED TO MD FOR REQUEST PATIENT STATED BEING UNABLE TO STAY IN THE BED AND WOULD "NEED TO GET UP AND WALK" IF PT COULD NOT HAVE REQUIP. SEE MD ORDER. PT STARTED ON NS CONTINUOUS AND PROTONIX GTT, SEE EMAR. BED ALARM TURNED ON PT IS HIGH FALL RISK AND MADE STATEMENTS OF WANTING TO GET OUT OF BED. USING CALL LIGHT FOR ASSISTANCE BEFORE GETTING OUT OF BED WAS REINFORCED WITH PT AT THIS TIME.
[2023-09-23 08:10] VITALS: BP 139/51
[2023-09-23 09:07] LABS: Hematocrit 21.6 % (37.0-53.0); Hemoglobin 7.4 g/dL (13.5-17.5)
--- NOTE | 2023-09-23 10:19 | NUR ---
[place] of Care: Care assumed at 0700hr. Patient alert and oriented x4. VSS, on RA, denies dyspnea/SOB. C/o pain to his neck, patient states this is chronic. Denies need for medication to treat his pain, only requesting heat sridevi, provided by [facility]. No s/s of active GI bleeding at this time. Protonix gtt infusing per emar. Peripheral IV x2 patent and intact. PEG tube to LUQ patent and intact. Skin surrounding PEG tube site is red and inflamed. slab installer applies calmazine lotion and split gauze dressing. Call light in reach, makes needs known. Will continue to monitor.
[2023-09-23] MEDS ORDERED: AMLO10 PO (11:26)
[2023-09-23] MEDS ORDERED: ALFUZOSIN HCL10 MG PO ×2 (11:26)
[2023-09-23] MEDS ORDERED: ASPI81CH PO (11:27)
[2023-09-23] MEDS ORDERED: Bupropion HCl75 MG PO ×2 (11:28)
[2023-09-23] MEDS ORDERED: BENZ100A PO (11:28)
[2023-09-23] MEDS ORDERED: VITAMIN D310 MC1 PO (11:30)
[2023-09-23] MEDS ORDERED: DOC250 PO ×2 (11:31)
[2023-09-23] MEDS ORDERED: EPLERENONE50 M1 PO ×2 (11:32)
[2023-09-23] MEDS ORDERED: FINA5 PO ×2 (11:33)
[2023-09-23] MEDS ORDERED: LABE200 PO ×2 (11:34)
[2023-09-23] MEDS ORDERED: MIRALAX17 GM PO ×2 (11:35)
[2023-09-23] MEDS ORDERED: Melatonin 3 MG Tab PO PRN (12:15)
[2023-09-23 12:30] VITALS: BP 137/51
[2023-09-23 13:04] LABS: Hematocrit 21.1 % (37.0-53.0); Hemoglobin 7.1 g/dL (13.5-17.5)
[2023-09-23] MEDS ORDERED: Eplerenone 25 MG Tab PO SCH (14:00)
[2023-09-23] MEDS ORDERED: Docusate Sodium 250 MG Cap PO SCH (14:00)
[2023-09-23] MEDS ORDERED: Acetaminophen325 M1 PO ×2 (15:23)
[2023-09-23] MEDS ORDERED: ACAR50 PO ×2 (15:24)
[2023-09-23] MEDS ORDERED: FLUT1DIS5 INH ×2 (15:27)
[2023-09-23] MEDS ORDERED: FISH OIL 1,0001 EA10 PO ×2 (15:27)
[2023-09-23] MEDS ORDERED: Flonase 0.05% N16 GM ×2 (15:28)
[2023-09-23] MEDS ORDERED: HYDHCL25 PO ×2 (15:29)
[2023-09-23] MEDS ORDERED: Glucophage 850850 MG PO (15:31)
[2023-09-23] MEDS ORDERED: Hair, Skin & N1 EACH PO ×2 (15:33)
[2023-09-23] MEDS ORDERED: TIOT18 INH ×2 (15:37)
[2023-09-23] MEDS ORDERED: Co Q-1010 MG PO ×2 (15:39)
[2023-09-23] MEDS ORDERED: URSO300 PO (15:39)
[2023-09-23 15:42] VITALS: BP 155/60
[2023-09-23] MEDS ORDERED: Benzonatate 100 MG Cap PO PRN (15:45)
[2023-09-23] MEDS ORDERED: Benzonatate 100 MG Cap PO SCH (16:00)
[2023-09-23] MEDS ORDERED: Methocarbamol 500 MG Tab PO SCH (17:00)
[2023-09-23] MEDS ORDERED: rOPINIRole HCl 1 MG Tab PO SCH (17:00)
--- NOTE | 2023-09-23 17:00 | NUR ---
Upon receiving a referral for spiritual care, I visited the patient. His dtr is bedside. He shares about his medical issues, [facility] [place] [facility], his family and his concerns moving forward. I mormalize his experience and provide therapeutic listening, and a calming presence. I will continue to remain available to patient and family.
[2023-09-23] MEDS ORDERED: HyDROXyzine HCl 25 MG Tab PO PRN (18:00)
[2023-09-23] MEDS ORDERED: MetFORMIN HCL 850 MG TAB PO SCH (18:00)
--- NOTE | 2023-09-23 18:04 | NUR ---
Shift Summary: Patients VS remain stable throughout shift. No s/s of active GI bleeding. No emesis or bloody stool this shift. H+H continues to trend down, Dr. Amato aware, repeat CBC ordered for 2100 tonight. Patient complaints of restless leg and "leg tightness" increased throughout morning and afternoon. Orders received for home meds requip and robaxin. These medications combined with standing/walking about the room for approx 30min effective to manage his leg discomfort. When taking PO medications this afternoon, patient c/o that pills got stuck in his throat. Repeat drinks of water and bites of ice cream ineffective to move medications. Patient then purposefully gagged himself and vomited approx 100ml of fluid, no pills. Patient stated this was effective to move pills downward, no further complaints. Pills given earlier in shift swallowed without difficulty, but plan to pass medications through PEG tube on further administrations. Will inform NOC shift. Call light in reach, makes needs known. Will continue to monitor until report to NOC shift RN.
[2023-09-23] MEDS ORDERED: Mometasone/Formoterol MDI 200/5 mcg 13 GM INH SCH (18:15)
[2023-09-23] MEDS ORDERED: Ipratropium Bromide INH 0.02% 0.5 mg/2.5ML Vial INH SCH (18:20)
[2023-09-23 19:59] VITALS: BP 162/64
[2023-09-23 19:59] LABS: Hematocrit 21.6 % (37.0-53.0); Hemoglobin 7.2 g/dL (13.5-17.5); Mean Corpuscular HGB 31.4 pg (26.0-34.0); Mean Corpuscular HGB Conc 33.3 g/dL (31.5-36.5); Mean Corpuscular Volume 94 fL (80-100); Mean Platelet Volume 9.8 fL (9.1-12.4); Platelet Count 247 K/mm3 (150-400); RDW Coefficient Variation 14.6 % (11.7-14.2); RDW Standard Deviation 50.2 fL (35.1-46.3); Red Blood Cell Count 2.29 M/mm3 (4.30-5.90); White Blood Cell Count 7.27 K/mm3 (4.00-11.30)
[2023-09-23] MEDS ORDERED: Ursodiol 300 MG Cap PO SCH (21:00)
[2023-09-23] MEDS ORDERED: TraZODone HCl 50 MG Tab PO SCH (21:00)
[2023-09-23] MEDS ORDERED: BuPROPion HCl 75 MG Tab PO SCH (21:00)
[2023-09-23 23:32] VITALS: BP 131/69
[2023-09-24] MEDS ORDERED: Lidocaine/Tetracaine/Epinephr 4 ML SOLN TOP PRN ×2 (01:30→08:55)
--- NOTE | 2023-09-24 01:30 | NUR ---
PHYSICIAN COMMUNICATION CONTACTED DR DE LEON TO NOTIFY HIM THAT THE PATIENT'S PEG TUBE WAS LEAKING ONTO THE PATIENT'S SKIN CAUSING A RAW, BURNING AREA AROUND THE OPENING THAT WAS CAUSING SIGNIFICANT PAIN DESPITE FLUSHING THE AREA AND USING BARRIER CREAMS TO PROTECT THE SKIN AND THAT THE PATIENT WAS ASKING FOR THE TOPICAL PAIN RELIEF CREAM THAT HE RECEIVED IN THE ER. DR DE LEON ORDERED THE LAT TOPICAL SOLUTION EVERY 8 HOURS NEEDED FOR THE PAIN.
[2023-09-24] MEDS ORDERED: Tiotropium Bromide 2.5 MCG/ACT MIST INHAL (10 ACT/4 GM) INH SCH (02:30)
[2023-09-24 04:42] LABS: BASOPHILS ABSOLUTE AUTO 0.03 K/mm3 (0.00-0.23); BASOPHILS PERCENT AUTO 1 % (0-2); EOSINOPHILS ABSOLUTE AUTO 0.26 K/mm3 (0.00-0.68); EOSINOPHILS PERCENT AUTO 4 % (0-6); Hematocrit 21.5 % (37.0-53.0); Hemoglobin 7.2 g/dL (13.5-17.5); IMMATURE GRAN ABSOLUTE AUTO 0.03 K/mm3 (0.00-0.10); IMMATURE GRAN PERCENT AUTO 1 % (0-1); LYMPHOCYTES ABSOLUTE AUTO 1.22 K/mm3 (0.84-5.20); LYMPHOCYTES PERCENT AUTO 20 % (21-46); MONOCYTES PERCENT AUTO 10 % (4-13); Mean Corpuscular HGB 31.4 pg (26.0-34.0); Mean Corpuscular HGB Conc 33.5 g/dL (31.5-36.5); Mean Corpuscular Volume 94 fL (80-100); Mean Platelet Volume 9.5 fL (9.1-12.4); NEUTROPHILS ABSOLUTE AUTO 4.09 K/mm3 (1.96-9.15); NEUTROPHILS PERCENT AUTO 66 % (41-73); Platelet Count 256 K/mm3 (150-400); RDW Coefficient Variation 14.6 % (11.7-14.2); RDW Standard Deviation 49.6 fL (35.1-46.3); Red Blood Cell Count 2.29 M/mm3 (4.30-5.90); White Blood Cell Count 6.23 K/mm3 (4.00-11.30)
[2023-09-24 05:06] LABS: Albumin, Blood 3.3 g/dL (3.4-5.0); Albumin/Globulin Ratio 1.4 (0.8-1.8); Bilirubin, Total 0.3 mg/dL (0.1-1.0); Bun/Creatinine Ratio 22.1 (12.0-20.0); Calcium, Blood 7.6 mg/dL (8.5-10.1); Creatinine, Blood 0.59 mg/dL (0.60-1.20); Globulin, Blood 2.4 g/dL (2.2-4.0); Potassium, Blood 4.2 mmol/L (3.5-5.5); Total Protein, Blood 5.7 g/dL (6.4-8.2)
[2023-09-24] MEDS ORDERED: FentaNYL Citrate 50 MCG/ML 2 ML Injection IV PRN (05:45)
[2023-09-24] MEDS ORDERED: CefTRIAXone Sodium 1,000 MG in NS 50 ML IV SCH (06:00)
--- NOTE | 2023-09-24 06:22 | NUR ---
SHIFT SUMMARY PATIENT ALERT AND ORIENTED X4. MEDICATED PER EMAR FOR PAIN. PATIENT'S PEG SITE CONTINUES TO LEAK AND CAUSE ESCORIATION WITH INCREASING BURNING PAIN. CONTACTED DR DE LEON AGAIN WHO ORDERED 25-50 MCG IV FENTANYL EVERY FOUR HOURS NEEDED. PATIENT ON ROOM AIR WITH SPO2 >90%. VITAL SIGNS STABLE WITH NO EVENTS ON TELE. WILL CONTINUE TO MONITOR. CALL LIGHT WITHIN REACH.
--- NOTE | 2023-09-24 06:56 | NUR ---
DR DE LEON TO BEDSIDE TO ASSESS PEG TUBE SITE. ORDERED 2 VIEW ABDOMINAL X RAY TO CHECK PLACEMENT.
[2023-09-24 07:49] VITALS: BP 171/69
[2023-09-24] MEDS ORDERED: Polyethylene Glycol 3350 17 gm PO SCH (09:00)
[2023-09-24] MEDS ORDERED: Rosuvastatin Calcium 10 MG Tab PO SCH (09:00)
[2023-09-24] MEDS ORDERED: AmLODIPine Besylate 5 MG Tab PO SCH (09:00)
[2023-09-24] MEDS ORDERED: Sertraline HCl 100 MG Tab PO SCH (09:00)
[2023-09-24] MEDS ORDERED: Finasteride 5 MG Tab PO SCH (09:00)
[2023-09-24] MEDS ORDERED: Tamsulosin HCl 0.4 MG Cap PO SCH (09:00)
[2023-09-24] MEDS ORDERED: FERSU300 PO ×2 (11:38)
[2023-09-24] MEDS ORDERED: CEPH500 PO ×2 (12:42)
[2023-09-24] MEDS ORDERED: TOPICAINE113 GM TOP ×2 (12:45)
[2023-09-24] MEDS ORDERED: TRAM50 PO ×2 (13:01)
[2023-09-24 13:47] VITALS: BP 136/58
[2023-09-24] MEDS ORDERED: LEVFLO500 PO ×2 (13:53)
--- NOTE | 2023-09-24 14:07 | NUR ---
Pt has been having some more relief with the topical lidocaine application, and keeping the drain sponges changed to keep the wound dry as possible. Pt received a phone call from the [facility] who gave him an appointment with a specialist for the J tube drainage and skin excoriation, date 10/06 at the [facility]. Pt received discharge instructions from ca and they were reviewed verbally and printed material provided for him to review. His daughter Gilbert is at the bedside, discussing it with him. Waiting for blood bank to send the slip so the transfusion can be started soon.
[2023-09-24 14:46] VITALS: BP 136/61
[2023-09-24 15:03] VITALS: BP 151/62
--- NOTE | 2023-09-24 15:04 | NUR ---
TRANSFUSION RATE INCREASED FROM 75 CC/HOUR TO 150 CC/HOUR. Pt denies any symptoms.
[2023-09-24 16:05] VITALS: BP 151/61
--- NOTE | 2023-09-24 18:04 | NUR ---
Pt received 1 u PRBCs, tolerated it well. He is c/o abdominal discomfort. ATtempted twice to have BM today. Bowel care was administered per orders. His appetite is good. He continues to have discomfort at the site of the PEG tube, and is cleaning it regularly. I encouraged the pt to place the drain sponge in place after cleaning and then to apply the phlange in place to hold the inner balloon agains the wall, in the hopes that it would decrease the drainage. He is very frequently moving it around and opening it. He said that he is working on it.
[2023-09-24] MEDS ORDERED: Acetaminophen 325 MG TABLET PO PRN (18:15)
--- NOTE | 2023-09-24 18:25 | NUR ---
Telephone report was given to Rob. Pt will be transferred to room 355 soon.
[2023-09-24 19:40] VITALS: BP 158/74
[2023-09-24 20:39] LABS: Hematocrit 24.8 % (37.0-53.0); Hemoglobin 8.4 g/dL (13.5-17.5)
[2023-09-25 02:59] VITALS: BP 174/68
--- NOTE | 2023-09-25 04:15 | NUR ---
SHIFT SUMMERY. PT HAS BEEN SLEEPING WELL AWOKE TO ASK ABOUT HIS LID[place]AIN TOPICAL FOR JTUBE AREA BUT FELL BACK TO SLEEP BEFORE IT WAS DELIVRED TO THE FLOOR. PT CONTINUES TO SLEEP , PT APPEARS TO BE COMFORTABLE.CALL LIGHT IN REACH.
[2023-09-25 04:58] VITALS: BP 166/71
[2023-09-25 05:20] LABS: Hemoglobin 8.8 g/dL (13.5-17.5)
[2023-09-25 05:50] LABS: Bun/Creatinine Ratio 11.7 (12.0-20.0); Calcium, Blood 8.6 mg/dL (8.5-10.1); Creatinine, Blood 0.6 mg/dL (0.60-1.20)
[2023-09-25 07:27] VITALS: BP 171/69
--- NOTE | 2023-09-25 12:41 | NUR ---
DISCHARGE NOTE PT DISCHARGED HOME AT APPROX 11:00. PT PROVIDED W/ VERBAL AND WRITTEN INSTRUCTIONS AND DEMONSTRATED UNDERSTANDING. PT A&OX4, VSS, AMB IND, VOIDING, TOLERATING PO, AND DENIED PAIN. BELONGINGS WERE RETURNED AND PT ESOURTED OUT AT 12:10 VIA W/C BY JCARLOS JASSO.
== END 2023-09-25 12:48 | disposition home or self-care (01) ==
LOC: ER 00:56 → MEDS 00:57 → PCU 00:57 → MEDS 09-24 18:49
PROVIDERS: Emergency Medicine; Family Medicine; Family Medicine Adult Medicine; Hospitalist; ADMIT Internal Medicine
DX: K92.2 Gastrointestinal hemorrhage, unspecified (principal); L03.311 Cellulitis of abdominal wall; R65.20 Severe sepsis without septic shock; E11.9 Type 2 diabetes mellitus without complications; I10 Essential (primary) hypertension; M41.86 Other forms of scoliosis, lumbar region; K44.9 Diaphragmatic hernia without obstruction or gangrene; E86.0 Dehydration; Z85.01 Personal history of malignant neoplasm of esophagus; Z85.828 Personal history of other malignant neoplasm of skin; Z88.8 Allergy status to other drugs, medicaments and biological substances; Z88.0 Allergy status to penicillin; Z79.84 Long term (current) use of oral hypoglycemic drugs; Z79.899 Other long term (current) drug therapy
CPT/HCPCS: 36415; 36430; 70450; 72125; 74019; 80048; 80053; 82947; 83605; 83735; 84100; 84443; 85007; 85014; 85018; 85025; 85027; 85610; 85730; 86850; 86900; 86901; 86923; 87040; 93005; 93010; 94640; 94664; 94760; 94762; 96361; 96365; 96375; 96376; 99285-25; A9270; C9113; G0378; J0696; J2270; J2405; J3010; J7030; P9016

== ENCOUNTER 2023-09-27 13:31 | Inpatient (IN) | payer OTHER ==
[~2023-09-27] VITALS: Ht 167.6 cm; Wt 72.3 kg
[~2023-09-27 13:31] MED LIST changes: +ACAR50 PO; +ALFUZOSIN HCL10 MG PO; +ASPI81CH PO; +Acetaminophen325 M1 PO; +Bupropion HCl75 MG PO; +Co Q-1010 MG PO; +EPLERENONE50 M1 PO; +FINA5 PO; +FISH OIL 1,0001 EA10 PO; +FLUT1DIS5 INH; +Flonase 0.05% N16 GM; +Glucophage 850850 MG PO; +HYDHCL25 PO; +Hair, Skin & N1 EACH PO; +LABE200 PO; +LEVFLO500 PO; +MIRALAX17 GM PO; +TIOT18 INH; +TOPICAINE113 GM TOP; +TRAM50 PO; +VITAMIN D310 MC1 PO
[2023-09-27] MEDS ORDERED: Ondansetron HCl 2 MG / ML 2ML Vial IV ONE (14:15)
[2023-09-27] MEDS ORDERED: HYDROmorphone HCl/Pf 1MG SYR IV ONE ×2 (14:40→22:25)
[2023-09-27] MEDS ORDERED: Lidocaine/Tetracaine/Epinephr 4 ML SOLN TOP ONE (14:40)
[2023-09-27] MEDS ORDERED: NS 1,000 ML IV SCH ×2 (14:40→19:10)
[2023-09-27] MEDS ORDERED: Pantoprazole Sodium 40 MG Injection IV ONE (14:50)
[2023-09-27 14:55] LABS: BASOPHILS ABSOLUTE AUTO 0.04 K/mm3 (0.00-0.23); BASOPHILS PERCENT AUTO 1 % (0-2); EOSINOPHILS ABSOLUTE AUTO 0.26 K/mm3 (0.00-0.68); EOSINOPHILS PERCENT AUTO 4 % (0-6); Hematocrit 24.3 % (37.0-53.0); Hemoglobin 8.2 g/dL (13.5-17.5); IMMATURE GRAN ABSOLUTE AUTO 0.02 K/mm3 (0.00-0.10); IMMATURE GRAN PERCENT AUTO 0 % (0-1); LYMPHOCYTES ABSOLUTE AUTO 0.99 K/mm3 (0.84-5.20); LYMPHOCYTES PERCENT AUTO 14 % (21-46); MONOCYTES PERCENT AUTO 9 % (4-13); Mean Corpuscular HGB 30.9 pg (26.0-34.0); Mean Corpuscular HGB Conc 33.7 g/dL (31.5-36.5); Mean Corpuscular Volume 92 fL (80-100); Mean Platelet Volume 9.4 fL (9.1-12.4); NEUTROPHILS ABSOLUTE AUTO 5.02 K/mm3 (1.96-9.15); NEUTROPHILS PERCENT AUTO 72 % (41-73); Platelet Count 299 K/mm3 (150-400); RDW Coefficient Variation 15.1 % (11.7-14.2); Red Blood Cell Count 2.65 M/mm3 (4.30-5.90); White Blood Cell Count 6.93 K/mm3 (4.00-11.30)
[2023-09-27 15:02] LABS: International Normalized Ratio 1.02; Prothrombin Time Results 10.7 Sec (9.7-11.5)
[2023-09-27 15:05] LABS: Albumin, Blood 3.3 g/dL (3.4-5.0); Albumin/Globulin Ratio 1.2 (0.8-1.8); Bilirubin, Total 0.2 mg/dL (0.1-1.0); Bun/Creatinine Ratio 20.6 (12.0-20.0); Calcium, Blood 7.9 mg/dL (8.5-10.1); Creatinine, Blood 0.68 mg/dL (0.60-1.20); Globulin, Blood 2.8 g/dL (2.2-4.0); Potassium, Blood 4.4 mmol/L (3.5-5.5); Total Protein, Blood 6.1 g/dL (6.4-8.2)
[2023-09-27] MEDS ORDERED: Lidocaine 2% Jelly Uro-Jet TOP ONE (17:20)
[2023-09-27] MEDS ORDERED: Pantoprazole Sodium 40 MG in NS 50 ML IV SCH (17:35)
[2023-09-27] MEDS ORDERED: Acetaminophen 325 MG TABLET PT PRN (19:10)
[2023-09-27] MEDS ORDERED: FLU VACC QS2023-24(6MOS UP)/PF 60 MCG/0.5 ML SYRINGE IM ONE (19:10)
[2023-09-27] MEDS ORDERED: HyDROXyzine HCl 25 MG Tab PO PRN (19:15)
[2023-09-27] MEDS ORDERED: Ondansetron HCl 2 MG / ML 2ML Vial IV PRN (19:15)
[2023-09-27] MEDS ORDERED: TraMADol HCl 50 MG Tab PO PRN (19:20)
[2023-09-27] MEDS ORDERED: Methocarbamol 500 MG Tab PO PRN (19:20)
[2023-09-27] MEDS ORDERED: Melatonin 3 MG Tab PO PRN (19:20)
[2023-09-27] MEDS ORDERED: Lidocaine HCl 4% Topical Soln 50 ML BTL TOP PRN (20:30)
[2023-09-27 20:38] LABS: Hematocrit 24.6 % (37.0-53.0); Hemoglobin 8.4 g/dL (13.5-17.5)
[2023-09-27] MEDS ORDERED: Labetalol HCL 100 MG TAB PO SCH (21:00)
[2023-09-27] MEDS ORDERED: Eplerenone 25 MG Tab PO SCH (21:00)
[2023-09-27] MEDS ORDERED: TraZODone HCl 50 MG Tab PO SCH (21:00)
[2023-09-27] MEDS ORDERED: Ursodiol 300 MG Cap PO SCH (21:00)
[2023-09-27] MEDS ORDERED: Mometasone/Formoterol MDI 200/5 mcg 13 GM INH SCH (21:00)
[2023-09-27] MEDS ORDERED: Tamsulosin HCl 0.4 MG Cap PO SCH (21:03)
[2023-09-27] MEDS ORDERED: rOPINIRole HCl 1 MG Tab PO PRN (21:05)
[2023-09-27] MEDS ORDERED: LIDOCAINE 4% TOP PRN (21:05)
[2023-09-27] MEDS ORDERED: Tiotropium Bromide 2.5 MCG/ACT MIST INHAL (10 ACT/4 GM) INH SCH (21:05)
[2023-09-27 21:11] VITALS: BP 174/66
[2023-09-27] MEDS ORDERED: HYDROmorphone HCl/Pf 1MG SYR IV PRN (22:25)
--- NOTE | 2023-09-27 23:51 | NUR ---
ADMIT NOTE 78 YR OLD MALE ADMITTED TO FLOOR FROM THE ED WITH DX OF UPPER GI BLEED. HAS J TUBE IN ABD, NOTE REDDNESS AND IRRITATION AROUND SITE. PT VOICED "GASTRIC ACID CENTENO OF AREA". (SEE PIC IN CHART). ALERT AND ORIENTED. DAUGHTER AT BEDSIDE FOR COMFORT AND IS POA. ORIENTED TO USE OF CALL LIGHT, CALL LIGHT IN REACH. RAILS UP X 2 FOR SAFETY. FIRE IGNITION TEACHING GIVEN. DENIES SMOKING AND TESTS SUPERINTENDENT, ETC. VOICED SEVERE PAIN. MD NOTIFIED, ORDERS FOR DIALUDID PLACED. MED EFFECTIVE. DRESSING OF J DRAIN SITE CHANGED. WILL CONTINUE TO MONITOR
[2023-09-28] MEDS ORDERED: Insulin Human Lispro 100 Units/ML 3ML Syringe SC SCH
[2023-09-28 02:46] LABS: Hemoglobin 8.5 g/dL (13.5-17.5)
[2023-09-28 03:33] VITALS: BP 134/75
[2023-09-28 07:34] VITALS: BP 131/57
--- NOTE | 2023-09-28 07:44 | NUR ---
MACHINE SHOP WORKER SUMMARY VSS. ALERT AND ORIENTED. WAS ADMITTED EARLIER IN THS SHIFT WIHT DX OF UPPER GI BLEED. DAUGHTER ARRIVED WITH PT, PROVIDED INFO RE HX AND MEDS. NOTE J DRAIN OF LEFT ABD. NOTE REDDENED AREAS AROUND DRAIN SITE. PT REPORTS "STOMACH ACID" POURING OUT OF DRAIN SITE CAUSING "BURNING" OF AREA. DRESSING OF LAVERN SITE CHANGED A FEW TIMES. MORRIS WAS PLACED IN HE ED FOR RETENTION. DRAINING CLEAR YELLOW. NO NOTED HEMOPTYSIS OR BLOODY STOOLS SINCE ADMISSION. HAS BEEN RESTING QUIETLY WITH OCCASIONAL INTERRUPTION DUE TO PAIN AT ITE - SEE MAR FOR DETAILS OF PAIN MEDS GIVEN. CALL LIGHT IN REACH. RAILS UP X 2 FOR SAFETY.
[2023-09-28] MEDS ORDERED: BuPROPion HCl 75 MG Tab PO SCH (09:00)
[2023-09-28] MEDS ORDERED: LevoFLOXacin 500 MG Tab PO SCH (09:00)
[2023-09-28] MEDS ORDERED: Fluticasone 0.05% Nasal Spray SCH (09:00)
[2023-09-28] MEDS ORDERED: Rosuvastatin Calcium 10 MG Tab PO SCH (09:00)
[2023-09-28] MEDS ORDERED: Sertraline HCl 100 MG Tab PO SCH (09:00)
[2023-09-28] MEDS ORDERED: AmLODIPine Besylate 5 MG Tab PO SCH (09:00)
[2023-09-28] MEDS ORDERED: Losartan Potassium 50 MG Tab PO SCH (09:00)
[2023-09-28] MEDS ORDERED: Finasteride 5 MG Tab PO SCH (09:00)
--- NOTE | 2023-09-28 13:37 | NUR ---
Spoke with pt's daughter Shima, she will be in to see pt this afternoon. She states at this time, the plan is for pt to return home after hospitalization, and continue with [facility] 5 days a week, 4 hrs a day, along with family assistance around the clock. Plan to meet with pt and daughter when she arrives today, at her request to wait for her.
[2023-09-28 14:41] LABS: Hemoglobin 8.4 g/dL (13.5-17.5)
[2023-09-28] MEDS ORDERED: Bisacodyl 10 MG Supp PR PRN (15:10)
[2023-09-28] MEDS ORDERED: Docusate Sodium 100 MG UDC PT PRN (15:10)
[2023-09-28] MEDS ORDERED: Magnesium Hydroxide Conc 10 ML UDC PT PRN (15:10)
[2023-09-28 16:12] VITALS: BP 120/52
[2023-09-28 20:03] VITALS: BP 119/50
--- NOTE | 2023-09-28 20:03 | NUR ---
1800- RN CALLED DR. MOYA TO CLARIFY J-TUBE FEEDING ORDER. DR. MOYA GAVE VERBAL OVER TELEPHONE TO DC J-TUBE FLUSHES AND FEEDINGS AND ORDERS ASSOCIATED. PT'S PAIN IS NOT IMPROVING IN ABD. DR. MOYA SAID TO HAVE PT NPO FOR NOW.
--- NOTE | 2023-09-28 20:05 | NUR ---
SUMMARY- PT FELT NAUSEATED AFTER EATING BREAKFAST AND HAD SMALL EPISODE OF DARK BROWN/SCANT BLOODY EMESIS. PT DID NOT "FEEL RIGHT" AFTER EATING TODAY. PT ATE 100% OF BREAKFAST AND 50% OF LUNCH. PT CONTINUING TO HAVE ABDOMINAL PAIN AND DISCOMFORT AND FEELING OF "FULLNESS." PT'S J-TUBE IS LEAKING GREEN FLUID CONTINUOUSLY. DRESSING CHANGED X3 THIS SHIFT. X1 ASSIST TO BSC. AAOX3.
--- NOTE | 2023-09-28 20:38 | NUR ---
BP 119/50. OUTPUT IN MORRIS BAG LOW AND DARK BRIGETTE. BLADDER SCAN 16 CC. IVF NS INFUSING AT 75 CC/HR. VERBALIZED FEELING LIGHT HEADED. CALL PLACED TO MD FOR POSSIBLE INCREASE IVF. MD NOTIFIED AND INSTRUCTED NURSE TO MONITOR FOR NOW. IF BP CONTINUED TO DROP AND IF BP MEAN DROPPED TO 65, POSIBLE BOLUS. WILL CONTINUE O MONITOR
--- NOTE | 2023-09-29 03:11 | NUR ---
[place] SUMMARY VSS. HAD SON AND DAUGHTER VISITING AT SHIFT COMMENCE. SON ASSISTED PT WITH SHORT WALK ABOUT HALLWAY. IVF OF NS INFUSING AT 75 ML/HR FOR HYDRATION. BP WAS TRENDING DOWN - (WNL), OUT PUT DARK BRIGETTE IN MORRIS BAG. VOICED SLIGHT MENTAL VERTGO. LEGS WERE ELEVATED. VOICED FELT BETTER. MD NOTIFIED, MD INSTRUCTED TO MONITOR VS, IF BP MEAN DROPPED TO 65, HE WOULD ORDER A BOLUS, BUT BP MAINTAINED. J DRAIN SITE EMITTED GREENISH FLUIDS CAUSING SOME BURNING PAIN AT SITE. DRESSINGS CHANGED NEEDED. LIDOCAINE TOPICAL SOLUTION APPLIED AND INTERMITTENT PAIN MEDS ADMINISTERED - SEE MAR FOR DETAILS. HOB ELEVATED AT 45 -50 DEGREES. HAS BEEN RESTING QUIETLY WITH FEW INTERRUPTONS OTHERWISE. CALL LIGHT IN REACH. RAILS UP X 2 FOR SAFETY. WILL CONTINUE TO MONITOR
[2023-09-29 04:54] LABS: Hematocrit 21.8 % (37.0-53.0); Hemoglobin 7.4 g/dL (13.5-17.5)
[2023-09-29 05:21] LABS: Calcium, Blood 7.4 mg/dL (8.5-10.1); Creatinine, Blood 0.8 mg/dL (0.60-1.20)
[2023-09-29 05:39] VITALS: BP 115/61
[2023-09-29 07:13] VITALS: BP 121/50
[2023-09-29] MEDS ORDERED: Prochlorperazine Edisylate 10 mg Vial IV PRN (08:00)
[2023-09-29] MEDS ORDERED: Dextrose 10% 1,000 ML IV SCH (08:05)
[2023-09-29] MEDS ORDERED: LevoFLOXacin 750 MG/D5W 150ML 150 ML IV SCH (09:00)
[2023-09-29] MEDS ORDERED: Pantoprazole Sodium 40 MG Injection IV ONE (10:10)
[2023-09-29] MEDS ORDERED: HYDROmorphone HCl/Pf 1MG SYR IV PRN (10:30)
--- NOTE | 2023-09-29 13:43 | NUR ---
1340- TUBE FEEDINGS AND TUBE FLUSHES STARTED PER ORDER.
[2023-09-29 15:21] VITALS: BP 111/49
--- NOTE | 2023-09-29 15:30 | NUR ---
The patient and his family have elected to go home with hospice. The patient no longer wishes to pursue treatment. They already have an appointment with [facility] tomorrow. The patient's J-tube continues to leak stomach acid around the tube. He will need to stay on PPI due to the copious amounts of stomach acid. We performed wound care and attempted to find a product to put around the j-tube that will help keep surrounding skin from becoming excoriated. Will continue to work on that through discharge. Pt being placed on comfort care at this time.
[2023-09-29] MEDS ORDERED: Pantoprazole Sodium 40 MG Injection IV SCH (16:30)
[2023-09-29] MEDS ORDERED: Furosemide 10 MG/ML 4ML Vial IV ONE (20:05)
[2023-09-29] MEDS ORDERED: Morphine Sulfate 20 MG/1ML 1 ML Oral Syringe SL PRN (20:05)
--- NOTE | 2023-09-29 20:09 | NUR ---
1744- THIS RN CALLED DR. MOYA TO INFORM HER OF PT HAVING SEVERE CRACKLES IN LUNGS. RN ALSO INFORMED HER PT WAS SOB AND HAD INCREASING OXYGEN NEEDS. GRIFFIN GAVE VERBAL OVER PHONE TO DC ALL TUBE FEEDINGS AND FLUSHES. GRIFFIN SAID TO LIMIT PO INTAKE OF FLUIDS. NO ORDER FOR LASIX.
--- NOTE | 2023-09-29 20:12 | NUR ---
1999- THIS RN CALLED [facility] FOR COMFORT CARE MEDICATION ORDERS. FERNANDO GAVE VERBAL TO ORDER ROXANOL 10MG Q 1 HR PRN, 40 MG LASIX IV X1 NOW, AND ALBUTEROL NEBS Q2 PRN. FERNANDO STATED HE WOULD BE UP TO LAY EYES ON THE PATIENT SOON AND SPEAK WITH HIM TO COME UP WITH A PLAN. FERNANDO ALSO STATED TO GIVE DILAUDID NOW. PT HAS A SEVERE ALLERGY TO ATIVAN.
[2023-09-29] MEDS ORDERED: Albuterol 2.5 MG/3 ML VIAL INH PRN (20:15)
[2023-09-29] MEDS ORDERED: Morphine Sulfate 15 MG TABCR PO SCH (21:00)
--- NOTE | 2023-09-30 04:56 | NUR ---
SHIFT SUMMARY 78 YR M ON COMFORT CARE. PT WAS HAVING ANXIETY AT BEGINNING OF SHIFT AFTER TAKING A PILL AND HAVING IT STUCK IN HIS THROAT. HOSPITALIST WAS NOTIFIED AND ORDER FOR ROXINOL WAS PUT IN. PT IS NOT ABLE TO HAVE ATIVAN DUE TO AN ALLERGY. THE ROXINOL HELPED TO CALM HIM AND IV DILAUDED HEPLED WITH HIS PAIN. PT HAS J TUBE IN HIS ABDOMEN THAT IS NO LONGER BEING USED BUT IT IS LEAKING FLUID THAT HAS LEFT THE AREA AROUND IT RED, RAW AND PAINFUL. A COLOSTOMY BAG WAS PLACED OVER IT TO CATCH THE LEAKAGE AND PROTECT THE SURROUNGING SKIN. IT HAS BEEN EFFECTIVE AND THE PT IS MUCH MORE COMFORTABLE NOW. PT FAMILY WILL SPEAK TO DOC IN THE A.M. TO HAVE TUBE REMOVED. PT HAS HAD MANY FAMILY MEMBERS IN THE ROOM AND IT APPEARS IF THEY DO NOT ALL GET ALONG AND HAVE DIFFERING OPINIONS ON PT'S TREATMENT. PLAN IS FOR PT TO DISCHARGE HOME ON HOSPICE IN THE MORNING.
[2023-09-30] MEDS ORDERED: PANT40 (10:12)
--- NOTE | 2023-09-30 11:02 | NUR ---
DISCHARGE FAMILY AT BEDSIDE. THERE WAS A MIS UNDERSTANDING ABOUT PT WANTING TRANSPORT HOME VS PRIVATE TRANSPORT BY CAR. [facility] DROPPED OFF E CYLINDERS FOR PT TO USE. WEANED O2 FROM 13L OXIMYZER TO 5L OXIMYZER. SAT 95% WITH HR 80. PT COME CONCETRATOR CAN FLOW UP TO 5L.MORRIS EMPTIED FOR 400ML AND OSTOMY BAG AROUND J TUBE EMPTIED 50 ML OF THICK GREEN ODORLESS FLUID. SHOWED FAMILY HOW TO EMPTY THE OSTOMY BAG. PT EXPRESSED THAT THE BAG WAS MUCH MORE COMFORTABLE THAN DRESSINGS. HE DENIED THAT HIS SKIN WAS PAINFUL. PT REFUSED ORAL MEDICATIONS D/T SWALLOW ISSUES. HE WAS MEDCIATED FOR PAIN WITH ROXANOL 10MG. HE EXPRESSED SATISFACTION WITH THE PAIN CONTROL. CARE ONGOING.
--- NOTE | 2023-09-30 11:35 | NUR ---
Spiritual care visit conducted. Patient is alert and has family present. THe patient is focused on wanting to know about where his "blood is going." He does not answer questions connected to why he is going home. He welcomes prayer, which I gladly supply. I address the issues of , dying and his family concerns in my prayer which appears to have struck a chord with the patient in that he becomes tearful. He quickly dries his tears and voices his appreciation for the prayer and the visit. I will continue to remain available to patient and family.
== END 2023-09-30 11:24 | disposition hospice, home (50) | DRG 378 ==
LOC: ER 13:31 → MEDS 13:32 → ENPENDDIS 09-30 10:06 → MEDS 09-30 11:24
PROVIDERS: Emergency Medicine; Hospitalist; Nurse Practitioner Acute Care; Student in an Organized Health Care Education/Training Program; ADMIT Internal Medicine
DX: K92.1 Melena (principal); D62 Acute posthemorrhagic anemia; K94.13 Enterostomy malfunction; L03.311 Cellulitis of abdominal wall; E87.1 Hypo-osmolality and hyponatremia; Z66 Do not resuscitate; Z51.5 Encounter for palliative care; E11.9 Type 2 diabetes mellitus without complications; I10 Essential (primary) hypertension; N40.0 Benign prostatic hyperplasia without lower urinary tract symptoms; F32.A Depression, unspecified; E78.5 Hyperlipidemia, unspecified; D50.9 Iron deficiency anemia, unspecified; J44.9 Chronic obstructive pulmonary disease, unspecified; Z79.84 Long term (current) use of oral hypoglycemic drugs; Z85.01 Personal history of malignant neoplasm of esophagus; Z90.49 Acquired absence of other specified parts of digestive tract; Z79.51 Long term (current) use of inhaled steroids; Z79.890 Hormone replacement therapy; Z87.891 Personal history of nicotine dependence
CPT/HCPCS: 36415; 51701; 51702; 51798; 74177; 80048; 80053; 82272; 82947; 83605; 83690; 85014; 85018; 85025; 85610; 86850; 86900; 86901; 93005; 93010; 94640; 94664; 94760; 94762; 96361; 96375; 96376; 99285-25; A9270; C9113; G0378; J0780; J1170; J1940; J1956; J2405; J7030; Q9967